=== PATIENT | female | born 1970 | race Caucasian/White ===

== ENCOUNTER → 2016-11-20 | Outpatient (CLI) | payer OTHER ==
[2016-11-20 10:53] LABS: Appearance,Urine Clear (Clear); Bilirubin,Urine Negative (Negative); Glucose,Urine (UA) Negative (Negative); Ketones,Urine Negative (Negative); Leukocyte Esterase,Urine Negative (Negative); Nitrite,Urine Negative (Negative); PH, Urine 5.5 (5.0-8.0); Protein,Urine Negative (Negative); UA Billing (MACRO vs. MICRO) CHEM; Urobilinogen,Urine <2.0 mg/dL (<2.0)
== END | disposition home or self-care (01) ==
LOC: LABWHC1 10:03
PROVIDERS: ATTEND Obstetrics & Gynecology
DX: R30.9 Painful micturition, unspecified (principal)
CPT/HCPCS: 81003; 87086

== ENCOUNTER → 2017-04-24 | Outpatient (CLI) | payer OTHER ==
[2017-04-24 07:10] LABS: Anisocytosis Slight; Basophils % (A) 1 %; CH 31.4; CHCM 32.3; Eosinophils % (A) 1 %; HCT 33.3 % (34.0-46.0); HDW 2.54; HGB 10.6 gm/dL (11.4-16.0); Luc # (Auto) 0.06; Luc % (Auto) 2; Lymphocytes # (A) 1.1 k/uL (1.0-4.8); Lymphocytes % (A) 33 %; MCH 31.2 pg (25.0-35.0); MCHC 31.9 g/dL (31.0-37.0); MCV 97.9 fL (80.0-100.0); Macrocytosis Slight; Monocytes # (A) 0.2 k/uL (0-1.0); Monocytes % (A) 7 %; Neutrophils # (A) 1.8 k/uL (1.3-7.7); Neutrophils % (A) 57 %; RBC 3.41 m/uL (3.80-5.40); RDW 17.6 % (11.5-15.5); WBC 3.2 k/uL (3.8-10.6); WBC (Perox) 3.33
[2017-04-24 07:21] LABS: ALT 31 U/L (9-52); AST 33 U/L (14-36); Alkaline Phosphatase 56 U/L (38-126); Anion Gap 10 mmol/L; Blood Urea Nitrogen 15 mg/dL (7-17); Calcium 9.7 mg/dL (8.4-10.2); Carbon Dioxide 28 mmol/L (22-30); Chloride 103 mmol/L (98-107); Glucose 94 mg/dL (74-99); Non-African American GFR(MDRD) >60 (>60 ml/min/1.73 sqM); Potassium 4.5 mmol/L (3.5-5.1); Sodium 141 mmol/L (137-145); Total Bilirubin 0.5 mg/dL (0.2-1.3); Total Protein 7.2 g/dL (6.3-8.2)
[2017-04-24 08:00] LABS: Magnesium 1.6 mg/dL (1.6-2.3)
== END | disposition home or self-care (01) ==
LOC: LABWHC1 06:42
PROVIDERS: ATTEND Obstetrics & Gynecology
DX: C56.9 Malignant neoplasm of unspecified ovary (principal)
CPT/HCPCS: 36415; 80053; 83735; 85025; 86304

== ENCOUNTER → 2017-12-26 | Outpatient (CLI) | payer BC | END | disposition home or self-care (01) | LOC: LABWHC1 09:11 | PROVIDERS: ATTEND Obstetrics & Gynecology | DX: C56.9 Malignant neoplasm of unspecified ovary (principal) | CPT/HCPCS: 36415; 86304 ==

== ENCOUNTER → 2018-01-21 | Outpatient (CLI) | payer BC | END | disposition home or self-care (01) | LOC: LABWHC1 07:29 | PROVIDERS: ATTEND Obstetrics & Gynecology | DX: C56.9 Malignant neoplasm of unspecified ovary (principal) | CPT/HCPCS: 36415; 86304 ==

== ENCOUNTER → 2018-04-30 | Outpatient (CLI) | payer BC ==
--- NOTE | 2018-04-30 10:31 | MM ---
Reason for exam: clinical finding. Last mammogram was performed 8 years and 2 months ago. History: Patient is postmenopausal and has history of ovarian cancer at age 45. Took hormonal contraceptives for 1 year. Physical Findings: Nurse did not find any significant physical abnormalities on exam. MG 3D Diag Mammo W/Cad SAMMY Bilateral CC, MLO, and XCCL view(s) were taken. Prior study comparison: February 21, 2010, right breast mammogram dig work up. February 12, 2010, bilateral digital screening mammogram. There are scattered fibroglandular densities. No significant new findings when compared with previous films. These results were verbally communicated with the patient and result sheet given to the patient on 04/30/18. ASSESSMENT: Negative, BI-RAD 1 RECOMMENDATION: Routine screening mammogram of both breasts in 1 year.
== END | disposition home or self-care (01) ==
LOC: RADMAMWWP 06:47
PROVIDERS: ATTEND Obstetrics & Gynecology
DX: N64.4 Mastodynia (principal)
CPT/HCPCS: 77062; 77066

== ENCOUNTER 2018-08-20 22:24 | Emergency (ER) | payer BC ==
[2018-08-20] MEDS ORDERED: ONDANSETRON 4 MG/2 ML VIAL IVP STA (22:57)
[2018-08-20] MEDS ORDERED: HYDROmorphone 0.5 MG/0.5 ML SYRINGE IVP STA (22:57)
[2018-08-20] MEDS ORDERED: SODIUM CHLORIDE 0.9% 1,000 ML IV ONE (22:57)
--- NOTE | 2018-08-20 22:58 | ED ---
Allergic Reaction HPI - General Source: patient, family Mode of arrival: ambulatory Limitations: no limitations <Michaela Daniels - Last Filed: 08/21/18 00:38> <Audrey Love - Last Filed: 08/21/18 01:54> - General Chief complaint: Allergic Reaction Stated complaint: Allergic reaction to cbd oil Time Seen by Provider: 08/20/18 22:35 - History of Present Illness Initial Comments: 48-year-old female with past medical history history of ovarian cancer with metastasis currently in mist of chemotherapy with last treatemnt of carboplatin and taxil Friday with oncologist in [place] presenting today for cc of "allergic reaction to THC/CBD oil", pt states that she had CBD/THC for the first time today, she states she had it around 5:30 fell asleep and then woke up at 7:30 PM feeling anxious, chest pressure, short of breath and has a very dry mouth, she states she had similar symptoms a few weeks ago when she had edible THC in a chocolate form , but this feels intensified. She denies experiencing these symptoms prior to taking these medications. Pt states has chronic pain that has no been controlled, and often occurs in her legs. Denies any changes, LE swelling or calf pain. Shes states it is more nerve pain of the legs b/l. Pt denies histor of blood clot. Pt denies CAD. 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 Pt states she has chronic nausea from her chemotherapy and occasional diarrhea. Denies any changes. Remaining ROS (-), pt denies any recent hemoptysis, fever, chills, back pain, numbness or tingling, dysuria or hematuria, constipation, headaches or visual changes, or any other complaints. Upon arrival pt VS WNL. (Michaela Daniels) - Related Data Home Medications Medication Instructions Recorded Confirmed Nystatin 500,000 units PO QID PRN 08/20/18 08/20/18 Ondansetron HCl [Zofran] 8 mg PO Q8H PRN 08/20/18 08/20/18 Allergies Allergy/AdvReac Type Severity Reaction Status Date / Time metronidazole [From Flagyl] Allergy Rash/Hives Verified 08/20/18 23:12 gluten AdvReac Nausea & Verified 08/20/18 23:12 Vomiting Milk Containing Products AdvReac Nausea & Verified 08/20/18 23:12 [Dairy] Vomiting Review of Systems ROS Other: All systems not noted in ROS Statement are negative. <Michaela Daniels - Last Filed: 08/21/18 00:38> ROS Other: All systems not noted in ROS Statement are negative. <Audrey Love P - Last Filed: 08/21/18 01:54> ROS Statement: Those systems with pertinent positive or pertinent negative responses have been documented in the HPI. 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 lymes disease History of Any Multi-Drug Resistant Organisms: None Reported Past Surgical History: Cholecystectomy, Hysterectomy Additional Past Surgical History / Comment(s): abd Past Psychological History: No Psychological Hx Reported Smoking Status: Never smoker Past Alcohol Use History: None Reported Past Drug Use History: None Reported <Michaela Daniels - Last Filed: 08/21/18 00:38> General Exam Limitations: no limitations <Michaela Daniels - Last Filed: 08/21/18 00:38> <Audrey Love P - Last Filed: 08/21/18 01:54> - General Exam Comments Initial Comments: General: The patient is awake and alert, in no distress, and does not appear acutely ill. Eye: Pupils are equal, round and reactive to light, extra-ocular movements are intact. No nystagmus. There is normal conjunctiva bilaterally. No signs of icterus. Ears, nose, mouth and throat: There are moist mucous membranes and no oral lesions. Neck: The neck is supple, there is no tenderness or JVD. Cardiovascular: There is a regular rate and rhythm. No murmur, rub or gallop is appreciated. Respiratory: Lungs are clear to auscultation, respirations are non-labored, breath sounds are equal. No wheezes, stridor, rales, or rhonchi. Gastrointestinal: Soft, non-distended, non-tender abdomen without masses or organomegaly noted. There is no rebound or guarding present. No CVA tenderness. Bowel sounds are unremarkable. Musculoskeletal: Normal ROM, no tenderness. Strength 5/5. Sensation intact. Radial pulses equal bilaterally 2+. Neurological: A&O x 3. CN II-XII intact, There are no obvious motor or sensory deficits. Coordination appears grossly intact. Speech is normal. Skin: Skin is warm and dry and no rashes or lesions are noted. (-) Homans, no lower extremity edema. Psychiatric: Cooperative, appropriate mood & affect, normal judgment. (Michaela Daniels) Vital Signs 08/20/18 02 22:28 01:27 Temperature 97.5 F L 97.4 F L Pulse Rate 99 76 Respiratory 15 18 Rate Blood Pressure 121/80 115/73 O2 Sat by Pulse 100 98 Oximetry Medical Decision Making - Lab Data Result diagrams: 08/20/18 22:57 08/20/18 22:57 <Michaela Daniels - Last Filed: 08/21/18 00:38> - Lab Data Result diagrams: 08/20/18 22:57 08/20/18 22:57 <Audrey Love - Last Filed: 08/21/18 01:54> - Medical Decision Making 48yo female presenting today for cc of "reaction to CBD/THC oil". I discussed the workup that I would like to perform today including CTA to r/o pulmonary embolism and ACS w/u. Pt began to cry in the room stating she does not want anymore imaging studies, stating she has had contrast with chest/abdomen/pelvic CT earlier this week. She states she is sure it is a reaction to the medication as she has had similar symptoms in the past when ingesting THC productions, this just feels intensified. I urged and expressed importance of the test to rule out a blood clot of the heart. Pt refused stating she does not want the a large work up she would like symptomatic treatment. I will readdress further testing with patient again. I discussed again risks without CTA and evaluation for PE. Pt again refused. Stating she would not like further testing. Patient is of sound mind at this time pt is requesting discharge, improvement of symptoms. Pt advised to not use oils if cause this reaction. Pt is to f/u with oncologist/ primary care provider in 1-2 days and return for persistent or worsening symptoms. Pt is agreeable with plan, denied questions at this time. Pt VS WNL. I did discuss the case with attending provider Dr. Peña who agreed with impression and plan. (Michaela Daniels) I was available for consultation in the emergency department. The history and physical exam were done by the midlevel provider. I was consulted for this patient's care. I reviewed the case with the midlevel provider and based on their presentation of the patient, I agree with the assessment, medical decision making and plan of care as documented. (Audrey Love) - Lab Data Lab Results 08/20/18 08/20/18 08/20/18 Range/Units 22:57 22:57 22:57 WBC 3.2 L (3.8-10.6) k/uL RBC 4.57 (3.80-5.40) m/uL Hgb 13.7 (11.4-16.0) gm/dL Hct 41.2 (34.0-46.0) % MCV 90.2 (80.0-100.0) fL MCH 30.0 (25.0-35.0) pg MCHC 33.3 (31.0-37.0) g/dL RDW 12.9 (11.5-15.5) % Plt Count 168 (150-450) k/uL Neutrophils % 55 % Lymphocytes % 39 % Monocytes % 3 % Eosinophils % 3 % Basophils % 0 % Neutrophils # 1.8 (1.3-7.7) k/uL Lymphocytes # 1.3 (1.0-4.8) k/uL Monocytes # 0.1 (0-1.0) k/uL Eosinophils # 0.1 (0-0.7) k/uL Basophils # 0.0 (0-0.2) k/uL Sodium 134 L (137-145) mmol/L Potassium 4.3 (3.5-5.1) mmol/L Chloride 98 (98-107) mmol/L Carbon Dioxide 27 (22-30) mmol/L Anion Gap 9 mmol/L BUN 19 H (7-17) mg/dL Creatinine 0.71 (0.52-1.04) mg/dL Est GFR (CKD-EPI)AfAm >90 (>60 ml/min/1.73 sqM) Est GFR (CKD-EPI)NonAf >90 (>60 ml/min/1.73 sqM) Glucose 100 H (74-99) mg/dL Calcium 9.4 (8.4-10.2) mg/dL Total Bilirubin 1.7 H (0.2-1.3) mg/dL AST 33 (14-36) U/L ALT 24 (9-52) U/L Alkaline Phosphatase 55 (38-126) U/L Troponin I <0.012 (0.000-0.034) ng/mL Total Protein 7.2 (6.3-8.2) g/dL Albumin 4.4 (3.5-5.0) g/dL - EKG Data EKG Comments: A 12-lead EKG was performed and shows the following: Rate is 86bpm, and rhythm is normal sinus. There are normal QRS complexes. ST segments have no elevation or depression, and DE segments appear normal. NonsppT wave abnormalities. EKG was reviewed by attending provider Dr. Love. (Michaela Daniels) Disposition Is patient prescribed a controlled substance at d/c from ED?: No Time of Disposition: 00:37 <Michaela Daniles - Last Filed: 08/21/18 00:38> <Audrey Love - Last Filed: 08/21/18 01:54> Clinical Impression: Anxiety, Shortness of breath, Allergic reaction Disposition: HOME SELF-CARE Condition: Good Instructions (If sedation given, give patient instructions): Dyspnea (ED) Additional Instructions: Please use medication as discussed. Please follow-up with family doctor in the next 2 days.. Please return to emergency room if the symptoms increase or worsen or for any other concerns. Referrals: Delmer Zarate MD [Primary Care Provider] - 1-2 days
[2018-08-20 23:46] LABS: ALT 24 U/L (9-52); AST 33 U/L (14-36); Albumin 4.4 g/dL (3.5-5.0); Alkaline Phosphatase 55 U/L (38-126); Anion Gap 9 mmol/L; Basophils % (A) 0 %; Blood Urea Nitrogen 19 mg/dL (7-17); Calcium 9.4 mg/dL (8.4-10.2); Carbon Dioxide 27 mmol/L (22-30); Chloride 98 mmol/L (98-107); Eosinophils # (A) 0.1 k/uL (0-0.7); Eosinophils % (A) 3 %; Glucose 100 mg/dL (74-99); HCT 41.2 % (34.0-46.0); HGB 13.7 gm/dL (11.4-16.0); Lymphocytes # (A) 1.3 k/uL (1.0-4.8); Lymphocytes % (A) 39 %; MCHC 33.3 g/dL (31.0-37.0); MCV 90.2 fL (80.0-100.0); Mean Platelet Volume 6.9; Monocytes # (A) 0.1 k/uL (0-1.0); Monocytes % (A) 3 %; Neutrophils # (A) 1.8 k/uL (1.3-7.7); Neutrophils % (A) 55 %; Platelet Count 168 k/uL (150-450); Potassium 4.3 mmol/L (3.5-5.1); RBC 4.57 m/uL (3.80-5.40); RDW 12.9 % (11.5-15.5); Sodium 134 mmol/L (137-145); Total Bilirubin 1.7 mg/dL (0.2-1.3); Total Protein 7.2 g/dL (6.3-8.2); WBC 3.2 k/uL (3.8-10.6)
[2018-08-21 01:28] VITALS: BP 115/73; PULSE 76; RESP 18; TEMP 97.4
== END 2018-08-21 01:27 | disposition home or self-care (01) ==
LOC: EC 22:24
DX: T40.7X5A Adverse effect of cannabis (derivatives), initial encounter (principal); R94.31 Abnormal electrocardiogram [ECG] [EKG]; K52.1 Toxic gastroenteritis and colitis; T45.1X5A Adverse effect of antineoplastic and immunosuppressive drugs, initial encounter; G89.29 Other chronic pain; M79.604 Pain in right leg; M79.605 Pain in left leg; Z88.1 Allergy status to other antibiotic agents; Z91.011 Allergy to milk products; Z92.21 Personal history of antineoplastic chemotherapy; Z85.43 Personal history of malignant neoplasm of ovary; Z85.028 Personal history of other malignant neoplasm of stomach; Z85.89 Personal history of malignant neoplasm of other organs and systems; Z90.710 Acquired absence of both cervix and uterus; Z90.49 Acquired absence of other specified parts of digestive tract; Z53.20 Procedure and treatment not carried out because of patient's decision for unspecified reasons
CPT/HCPCS: 36415; 93005; 80053; 84484; 85025; 99285; 96374; 96375; 96361; J2405; J1170

== ENCOUNTER → 2018-09-29 | Outpatient (CLI) | payer BC ==
[2018-09-29 08:39] LABS: Basophils % (A) 1 %; Eosinophils # (A) 0.1 k/uL (0-0.7); Eosinophils % (A) 3 %; HCT 35.1 % (34.0-46.0); HGB 11.6 gm/dL (11.4-16.0); Lymphocytes # (A) 1.3 k/uL (1.0-4.8); Lymphocytes % (A) 42 %; MCH 30.4 pg (25.0-35.0); MCHC 33.1 g/dL (31.0-37.0); MCV 91.8 fL (80.0-100.0); Mean Platelet Volume 8.1; Monocytes # (A) 0.2 k/uL (0-1.0); Monocytes % (A) 8 %; Neutrophils # (A) 1.4 k/uL (1.3-7.7); Neutrophils % (A) 44 %; Platelet Count 177 k/uL (150-450); RBC 3.83 m/uL (3.80-5.40); WBC 3.1 k/uL (3.8-10.6)
[2018-09-29 17:26] LABS: Albumin 4.6 g/dL (3.80-4.90); Albumin/Globulin Ratio 2.3 (1.60-3.17); Anion Gap 7.3 mmol/L (4.00-12.00); Calcium 9.5 mg/dL (8.7-10.3); Carbon Dioxide 27.7 mmol/L (21.6-31.8); Potassium 4.1 mmol/L (3.5-5.5); Total Bilirubin 0.5 mg/dL (0.3-1.2); Total Protein 6.6 g/dL (6.2-8.2)
== END | disposition home or self-care (01) ==
LOC: LABWHC1 08:14
PROVIDERS: ATTEND Nurse Practitioner Family
DX: C56.9 Malignant neoplasm of unspecified ovary (principal)
CPT/HCPCS: 36415; 80053; 85025; 86304

== ENCOUNTER → 2018-10-07 | Outpatient (CLI) | payer BC ==
[2018-10-07 07:38] LABS: Basophils % (A) 1 %; Eosinophils # (A) 0.1 k/uL (0-0.7); Eosinophils % (A) 3 %; HCT 38.2 % (34.0-46.0); HGB 12.5 gm/dL (11.4-16.0); Lymphocytes # (A) 1.4 k/uL (1.0-4.8); Lymphocytes % (A) 54 %; MCHC 32.7 g/dL (31.0-37.0); MCV 91.8 fL (80.0-100.0); Mean Platelet Volume 8.2; Monocytes % (A) 1 %; Neutrophils # (A) 1.1 k/uL (1.3-7.7); Neutrophils % (A) 40 %; Platelet Count 154 k/uL (150-450); RBC 4.16 m/uL (3.80-5.40); RDW 14.9 % (11.5-15.5); WBC 2.7 k/uL (3.8-10.6)
== END | disposition home or self-care (01) ==
LOC: LABWHC1 06:59
PROVIDERS: ATTEND Nurse Practitioner Family
DX: C56.9 Malignant neoplasm of unspecified ovary (principal)
CPT/HCPCS: 36415; 85025

== ENCOUNTER 2018-11-13 01:56 | Emergency (ER) | payer BC ==
--- NOTE | 2018-11-13 02:13 | ED ---
Chest Pain HPI - General Chief Complaint: Chest Pain Stated Complaint: chest pain Time Seen by Provider: 11/13/18 02:10 Source: patient Mode of arrival: ambulatory Limitations: no limitations - History of Present Illness Initial Comments: Patient's 48-year-old woman with history of cancer, being treated currently who had the onset of sternal chest pain and approximate 9 PM while she was trying to rest. Patient states she was warned she may have bony pains while on this chemotherapeutic. She states that she is subsequently has been having pain to t he tailbone area. She describes pain as aching, severe, without worsening or relieving factors. She denies any anginal type symptoms. MD Complaint: chest pain Onset/Timin -: hour(s) Onset: during rest Pain Location: substernal Severity: severe Quality: sharp Consistency: constant Improves With: nothing Worsens With: nothing Treatments Prior to Arrival: none - Related Data Home Medications Medication Instructions Recorded Confirmed Nystatin 500,000 units PO QID PRN 08/20/18 08/20/18 Ondansetron HCl [Zofran] 8 mg PO Q8H PRN 08/20/18 08/20/18 Allergies Allergy/AdvReac Type Severity Reaction Status Date / Time metronidazole [From Flagyl] Allergy Rash/Hives Verified 11/13/18 02:07 gluten AdvReac Nausea & Verified 11/13/18 02:07 Vomiting Milk Containing Products AdvReac Nausea & Verified 11/13/18 02:07 [Dairy] Vomiting Review of Systems ROS Statement: Those systems with pertinent positive or pertinent negative responses have been documented in the HPI. ROS Other: All systems not noted in ROS Statement are negative. Constitutional: Denies: fever, chills Respiratory: Denies: cough, dyspnea Cardiovascular: Reports: as per HPI, chest pain. 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 lymes disease History of Any Multi-Drug Resistant Organisms: None Reported Past Surgical History: Cholecystectomy, Hysterectomy Additional Past Surgical History / Comment(s): abd Past Psychological History: No Psychological Hx Reported Smoking Status: Never smoker Past Alcohol Use History: None Reported Past Drug Use History: None Reported General Exam Limitations: no limitations General appearance: alert, in no apparent distress Head exam: Present: atraumatic, normocephalic Eye exam: Present: normal appearance. Absent: scleral icterus, conjunctival injection ENT exam: Present: normal oropharynx Neck exam: Present: normal inspection, full ROM. Absent: tenderness Respiratory exam: Present: normal lung sounds bilaterally. Absent: respiratory distress, wheezes, rales, rhonchi, stridor Cardiovascular Exam: Present: regular rate, normal rhythm, normal heart sounds. Absent: systolic murmur, diastolic murmur, rubs, gallop GI/Abdominal exam: Present: soft. Absent: distended, tenderness, guarding, rebound, rigid, mass Extremities exam: Present: normal inspection, normal capillary refill. Absent: pedal edema, calf tenderness Back exam: Present: normal inspection. Absent: vertebral tenderness Skin exam: Present: warm, dry, intact, normal color. Absent: rash Course Vital Signs 11/13/18 11/13/18 11/13/18 02:05 02:52 03:14 Temperature 97.6 F 99.1 F Pulse Rate 106 H 98 80 Respiratory 20 18 18 Rate Blood Pressure 186/114 146/126 123/69 O2 Sat by Pulse 99 99 95 Oximetry 11/13/18 04:22 Temperature Pulse Rate 86 Respiratory 18 Rate Blood Pressure 119/73 O2 Sat by Pulse 96 Oximetry Disposition Clinical Impression: Chest pain Disposition: HOME SELF-CARE Condition: Good Instructions (If sedation given, give patient instructions): Chest Pain (ED) Is patient prescribed a controlled substance at d/c from ED?: No Referrals: Nonstaff,Physician [Primary Care Provider] - 1-2 days
[2018-11-13] MEDS ORDERED: SODIUM CHLORIDE 0.9% 500 ML 500 ML IV STA (02:27)
[2018-11-13] MEDS ORDERED: HYDROmorphone 0.5 MG/0.5 ML SYRINGE IVP STA (02:27)
--- NOTE | 2018-11-13 02:27 | XR ---
EXAM: XR Chest, 2 Views CLINICAL HISTORY: Chest pain TECHNIQUE: Frontal and lateral views of the chest. COMPARISON: Chest x-ray dated 06/08/2016 FINDINGS: Lungs: Unremarkable. No consolidation. Pleural space: Unremarkable. No pneumothorax. Heart: Unremarkable. No cardiomegaly. Mediastinum: Unremarkable. Bones/joints: Unremarkable. Tubes, lines and devices: Left subclavian Port-A-Cath with tip in the cavoatrial junction. IMPRESSION: No acute findings.
[2018-11-13 02:36] LABS: Anisocytosis Slight; Basophils % (A) 1 %; Eosinophils # (A) 0.1 k/uL (0-0.7); Eosinophils % (A) 1 %; HCT 38.1 % (34.0-46.0); HGB 12.1 gm/dL (11.4-16.0); Lymphocytes # (A) 2.1 k/uL (1.0-4.8); Lymphocytes % (A) 50 %; MCH 30.6 pg (25.0-35.0); MCHC 31.9 g/dL (31.0-37.0); MCV 96.1 fL (80.0-100.0); Mean Platelet Volume 7.4; Monocytes # (A) 0.5 k/uL (0-1.0); Monocytes % (A) 12 %; Neutrophils # (A) 1.4 k/uL (1.3-7.7); Neutrophils % (A) 33 %; Platelet Count 167 k/uL (150-450); RBC 3.97 m/uL (3.80-5.40); RDW 16.6 % (11.5-15.5); WBC 4.2 k/uL (3.8-10.6)
[2018-11-13 02:37] LABS: INR 0.9 (<1.2); Partial Thromboplastin Time 23.5 sec (22.0-30.0); Prothrombin Time 9.5 sec (9.0-12.0)
[2018-11-13 02:45] LABS: ALT 31 U/L (9-52); AST 66 U/L (14-36); Albumin 4.9 g/dL (3.5-5.0); Alkaline Phosphatase 60 U/L (38-126); Anion Gap 10 mmol/L; Blood Urea Nitrogen 23 mg/dL (7-17); Carbon Dioxide 27 mmol/L (22-30); Chloride 103 mmol/L (98-107); Glucose 96 mg/dL (74-99); Magnesium 1.7 mg/dL (1.6-2.3); Potassium 4.1 mmol/L (3.5-5.1); Sodium 140 mmol/L (137-145); Total Bilirubin 0.6 mg/dL (0.2-1.3); Total Protein 7.8 g/dL (6.3-8.2)
[2018-11-13 02:53] VITALS: RESP 18
[2018-11-13 04:23] VITALS: BP 119/73; PULSE 86
[2018-11-13 04:53] VITALS: TEMP 97.6
== END 2018-11-13 04:55 | disposition home or self-care (01) ==
LOC: EC 01:56
DX: R07.89 Other chest pain (principal); M53.3 Sacrococcygeal disorders, not elsewhere classified; Z88.1 Allergy status to other antibiotic agents; Z91.011 Allergy to milk products; Z91.018 Allergy to other foods; Z85.43 Personal history of malignant neoplasm of ovary; Z85.028 Personal history of other malignant neoplasm of stomach; Z85.528 Personal history of other malignant neoplasm of kidney; Z92.21 Personal history of antineoplastic chemotherapy; Z90.49 Acquired absence of other specified parts of digestive tract
CPT/HCPCS: 36415; 71046; 80053; 83735; 84484; 85025; 85379; 85610; 85730; 93005; 96361; 96374; 99285

== ENCOUNTER → 2019-01-07 | Outpatient (CLI) | payer BC ==
[2019-01-07 07:30] LABS: HCT 33.4 % (34.0-46.0); HGB 11.3 gm/dL (11.4-16.0); MCH 32.9 pg (25.0-35.0); MCHC 33.8 g/dL (31.0-37.0); MCV 97.5 fL (80.0-100.0); Mean Platelet Volume 7.9; Platelet Count 145 k/uL (150-450); RBC 3.42 m/uL (3.80-5.40); RDW 15.5 % (11.5-15.5)
[2019-01-07 08:39] LABS: Neutrophils % (M) 19 %
[2019-01-07 08:40] LABS: Eosinophils # (M) 0.06 k/uL (0-0.7); Lymphocytes # (M) 1.26 k/uL (1.0-4.8); Nucleated Red Blood Cells 0 /100 WBC (0-0); Total Cells Counted 100
[2019-01-07 09:30] LABS: Neutrophils # (M) 0.38 k/uL (1.3-7.7)
== END | disposition home or self-care (01) ==
LOC: LABWHC1 06:38
PROVIDERS: ATTEND Nurse Practitioner Family
DX: C56.9 Malignant neoplasm of unspecified ovary (principal)
CPT/HCPCS: 36415; 85025

== ENCOUNTER → 2019-01-19 | Outpatient (CLI) | payer BC ==
[2019-01-19 07:39] LABS: Basophils % (A) 1 %; Eosinophils # (A) 0.1 k/uL (0-0.7); Eosinophils % (A) 2 %; HCT 36.7 % (34.0-46.0); Lymphocytes # (A) 1.5 k/uL (1.0-4.8); Lymphocytes % (A) 44 %; MCH 32.9 pg (25.0-35.0); MCHC 32.8 g/dL (31.0-37.0); MCV 100.4 fL (80.0-100.0); Macrocytosis Slight; Mean Platelet Volume 7.2; Monocytes # (A) 0.2 k/uL (0-1.0); Monocytes % (A) 7 %; Neutrophils # (A) 1.5 k/uL (1.3-7.7); Neutrophils % (A) 44 %; Platelet Count 137 k/uL (150-450); RBC 3.66 m/uL (3.80-5.40); WBC 3.5 k/uL (3.8-10.6)
== END | disposition home or self-care (01) ==
LOC: LABWHC1 06:29
PROVIDERS: ATTEND Nurse Practitioner Family
DX: C56.9 Malignant neoplasm of unspecified ovary (principal)
CPT/HCPCS: 36415; 85025

== ENCOUNTER → 2019-03-19 | Outpatient (CLI) | payer BC ==
[2019-03-19 11:21] LABS: Vitamin D 25 Hydroxy 23.2 ng/mL (30.0-100.0)
== END | disposition home or self-care (01) ==
LOC: LABWHC1 06:42
PROVIDERS: ATTEND Family Medicine
DX: E55.9 Vitamin D deficiency, unspecified (principal); C56.9 Malignant neoplasm of unspecified ovary; E56.9 Vitamin deficiency, unspecified; E72.11 Homocystinuria
CPT/HCPCS: 36415; 82306; 82607; 83090; 83735; 84207; 84630; 85652

== ENCOUNTER → 2020-06-26 | Outpatient (CLI) | payer BC ==
--- NOTE | 2020-06-26 13:02 | ECHOF ---
Referral Reason:Pre Chemo Z01.818 MEASUREMENTS -------- HEIGHT: 180.3 cm WEIGHT: 73.9 kg BP: IVSd: 0.9 cm (0.6 - 1.1) LVIDd: 3.7 cm (3.9 - 5.3) LVPWd: 0.9 cm (0.6 - 1.1) IVSs: 1.1 cm LVIDs: 2.5 cm LVPWs: 1.3 cm LA Diam: 2.9 cm (2.7 - 3.8) RVIDd: 2.7 cm (< 3.3) EPSS: 0.1 cm MV E Joe: 0.32 m/s MV DecT: 182 ms MV A Joe: 0.77 m/s MV E/A Ratio: 0.42 RAP: 5.00 mmHg RVSP: 27.32 mmHg MV EF SLOPE: 59.59 mm/s (70 - 150) MV EXCURSION: 24.53 mm (> 18.000) FINDINGS -------- Sinus rhythm. This was a technically good study. LV size, wall thickness and systolic function are normal, with an EF greater than 55%. The left julia tricular size is normal. The right ventricle is normal in size. The left atrial size is normal. The right atrial size is normal. There is mild aortic valve sclerosis. Mild mitral regurgitation is present. Mild tricuspid regurgitation present. Right ventricular systolic pressure is normal at < 35 mmHg. There is no pulmonic regurgitation present. The aortic root size is normal. There is no pericardial effusion. CONCLUSIONS -------- 1. LV size, wall thickness and systolic function are normal, with an EF greater than 55%. 2. The left ventricular size is normal. 3. The right ventricle is normal in size. 4. The left atrial size is normal. 5. The right atrial size is normal. 6. There is mild aortic valve sclerosis. 7. Mild mitral regurgitation is present. 8. Mild tricuspid regurgitation present. 9. The aortic root size is normal. 10. There is no pericardial effusion. HEAD OF QUALITY: Hoa Corona RDCS
== END | disposition home or self-care (01) ==
LOC: RADECHMAIN 10:01
PROVIDERS: ATTEND Internal Medicine Hematology & Oncology
DX: I08.3 Combined rheumatic disorders of mitral, aortic and tricuspid valves (principal); Z91.011 Allergy to milk products; Z88.1 Allergy status to other antibiotic agents; Z91.09 Other allergy status, other than to drugs and biological substances
CPT/HCPCS: 93306

== ENCOUNTER 2020-09-12 10:15 | Day surgery (SDC) | payer BC ==
[2020-09-11 08:48] VITALS: BMI 23.3
[~2020-09-12 10:15] MED LIST: LACTATED RINGERS 1,000 ML IV SCH; LIDOCAINE 1% (10MG/ML) FOR IV START INTRADERMA PRN
[2020-09-12] MEDS ORDERED: hydrALAZINE HCL 20 MG/ML 1 ML VIAL IV ONE (11:13)
[2020-09-12 11:18] VITALS: TEMP 98.1
[2020-09-12 11:23] LABS: Basophils % (A) 1 %; Eosinophils # (A) 0.1 k/uL (0-0.7); Eosinophils % (A) 3 %; HCT 39.3 % (34.0-46.0); HGB 13.3 gm/dL (11.4-16.0); Lymphocytes # (A) 0.8 k/uL (1.0-4.8); Lymphocytes % (A) 20 %; MCH 30.7 pg (25.0-35.0); MCHC 33.9 g/dL (31.0-37.0); MCV 90.6 fL (80.0-100.0); Mean Platelet Volume 7.9; Monocytes # (A) 0.2 k/uL (0-1.0); Monocytes % (A) 6 %; Neutrophils # (A) 2.8 k/uL (1.3-7.7); Neutrophils % (A) 69 %; Platelet Count 158 k/uL (150-450); RBC 4.33 m/uL (3.80-5.40); RDW 14.9 % (11.5-15.5)
[2020-09-12] MEDS ORDERED: PROPOFOL 10 MG/ML 20 ML VIAL IV ONE (11:31)
[2020-09-12] MEDS ORDERED: LIDOCAINE 1% INJ 10MG/ML (20 ML MDV) ONE (11:31)
--- NOTE | 2020-09-12 11:35 | P.GSHP ---
History of Present Illness H&P Date: 09/12/20 Chief Complaint: GERD, dysphagia 50-year-old female with a complex medical history including ovarian cancer, Lyme disease here today for upper endoscopy. Patient has had complaints of dysphagia and odynophagia. Some reflux as well. Some chronic abdominal discomfort Past Medical History Past Medical History: Cancer, GERD/Reflux Additional Past Medical History / Comment(s): ovarian ca mets to stomach and r enal artery 2016-chemo & surgery, lymes disease, left kidney infarction, current chemo, recent hoarseness & dysphagia History of Any Multi-Drug Resistant Organisms: None Reported Past Surgical History: Cholecystectomy, Hysterectomy, Orthopedic Surgery Additional Past Surgical History / Comment(s): oophrectomy & salpingectomy & debulking, right knee arthroscopy, mediport insertion Past Anesthesia/Blood Transfusion Reactions: No Reported Reaction Smoking Status: Never smoker Medications and Allergies Home Medications Medication Instructions Recorded Confirmed Type ondansetron HCL [Zofran] 8 mg PO Q8H PRN 08/20/18 09/12/20 History Acetaminophen [Tylenol] 325 mg PO Q4-6H PRN 09/11/20 09/12/20 History diphenhydrAMINE [Benadryl] 25 mg PO HS PRN 09/11/20 09/12/20 History Allergies Allergy/AdvReac Type Severity Reaction Status Date / Time metronidazole [From Flagyl] Allergy Rash/Hives Verified 09/12/20 10:44 gluten AdvReac Nausea & Verified 09/12/20 10:44 Vomiting Milk Containing Products AdvReac Nausea & Verified 09/12/20 10:44 [Dairy] Vomiting Surgical - Exam Vital Signs Temp Pulse Resp BP Pulse Ox 98.1 F 95 16 212/104 98 09/12/20 11:00 09/12/20 11:00 09/12/20 11:00 09/12/20 11:00 09/12/20 11:00 Physical exam: General: Well-developed, well-nourished HEENT: Normocephalic, sclerae nonicteric Abdomen: Nontender, nondistended Extremities: No edema Neuro: Alert and oriented Results - Labs 09/12/20 11:03 Abnormal Lab Results - Last 24 Hours (Table) 09/12/20 Range/Units 11:03 Lymphocytes # 0.8 L (1.0-4.8) k/uL Assessment and Plan (1) Dysphagia Narrative/Plan: Will proceed with upper endoscopy Current Visit: Yes Status: Acute Code(s): R13.10 - DYSPHAGIA, UNSPECIFIED SNOMED Code(s): 57888835
--- NOTE | 2020-09-12 11:42 | P.PCN ---
Date of Procedure: 09/12/20 Procedure(s) Performed: Preoperative Dx: Dysphagia Postoperative Dx: Gastritis Procedure: EGD with Bx Anesthesia: Sedation Endoscopist: Dr. Kowalski Specimens: Antrum Endoscopic Procedure: The patient was on the endoscopy table in the left decubitus position. The Olympus gastroscope was inserted into the oropharynx and passed under direct visualization to the region of the third portion of the duodenum. From that point the scope was slowly withdrawn inspecting all surfaces carefully. There were no neoplastic inflammatory or polypoid lesions throughout the duodenum. The pylorus was widely patent. The stomach was carefully inspected. There was mild gastritis present. A biopsy of the antrum took place to rule out H. pylori. Retroflexion revealed a normal hiatus. The esophagus was then carefully examined. There were no neoplastic inflammatory or polypoid lesions throughout the visualized esophagus. The patient was then taken to the recovery room in stable condition per anesthesia guidelines. Recommendations: Resume diet. Await biopsy results. If dysphagia persists consider esophagram. Patient also describing soreness in the back of her throat. If that persists or increases consider ENT evaluation.
[2020-09-12 12:15] VITALS: RESP 18
[2020-09-12] MEDS ORDERED: hydrALAZINE HCL 20 MG/ML 1 ML VIAL ONE (12:18)
[2020-09-12] MEDS ORDERED: hydrALAZINE HCL 20 MG/ML 1 ML VIAL IVP ONE (12:19)
[2020-09-12 12:35] VITALS: BP 162/81; PULSE 91
[2020-09-12] MEDS ORDERED: HEPARIN SODIUM,PORCINE 100 UNIT/ML 5 ML VIAL IV ONE (12:45)
== END 2020-09-12 12:55 | disposition home or self-care (01) ==
LOC: ORWHC2ENDO 10:15
PROVIDERS: ATTEND Surgery
DX: K29.50 Unspecified chronic gastritis without bleeding (principal); K31.9 Disease of stomach and duodenum, unspecified; K31.7 Polyp of stomach and duodenum; K21.9 Gastro-esophageal reflux disease without esophagitis; G89.29 Other chronic pain; C56.9 Malignant neoplasm of unspecified ovary; C78.89 Secondary malignant neoplasm of other digestive organs; C79.00 Secondary malignant neoplasm of unspecified kidney and renal pelvis; K86.81 Exocrine pancreatic insufficiency; Z86.19 Personal history of other infectious and parasitic diseases; Z92.21 Personal history of antineoplastic chemotherapy; Z98.890 Other specified postprocedural states; Z87.448 Personal history of other diseases of urinary system; Z79.899 Other long term (current) drug therapy; Z90.49 Acquired absence of other specified parts of digestive tract; Z90.710 Acquired absence of both cervix and uterus; Z90.79 Acquired absence of other genital organ(s); Z95.828 Presence of other vascular implants and grafts; Z88.1 Allergy status to other antibiotic agents; Z91.018 Allergy to other foods; Z91.011 Allergy to milk products
CPT/HCPCS: 88305; 85025; 43239; J0360; J1642; J2001; J2704

== ENCOUNTER → 2020-10-09 | Outpatient (CLI) | payer BC ==
[2020-10-09 07:39] LABS: Basophils % (A) 1 %; Eosinophils # (A) 0.1 k/uL (0-0.7); Eosinophils % (A) 3 %; HCT 42.6 % (34.0-46.0); HGB 13.7 gm/dL (11.4-16.0); Lymphocytes # (A) 0.7 k/uL (1.0-4.8); Lymphocytes % (A) 22 %; MCH 29.5 pg (25.0-35.0); MCHC 32.1 g/dL (31.0-37.0); MCV 91.8 fL (80.0-100.0); Mean Platelet Volume 8.1; Monocytes # (A) 0.2 k/uL (0-1.0); Monocytes % (A) 7 %; Neutrophils # (A) 2.1 k/uL (1.3-7.7); Neutrophils % (A) 64 %; Platelet Count 167 k/uL (150-450); RBC 4.64 m/uL (3.80-5.40); RDW 15.2 % (11.5-15.5); WBC 3.3 k/uL (3.8-10.6)
[2020-10-09 15:29] LABS: Ferritin 87.1 ng/mL (10.0-291.0)
[2020-10-09 15:46] LABS: African American GFR (CKD) 98.9 (60.0-200.0); Anion Gap 7.2 mmol/L (4.00-12.00); C Reactive Protein, High Sens 0.88 mg/L (0.000-3.000); Carbon Dioxide 29.8 mmol/L (21.6-31.8); Chol/HDL Ratio 3.08; Non-African American GFR(CKD) 85.4 (60.0-200.0); Potassium 4.7 mmol/L (3.5-5.5)
== END | disposition home or self-care (01) ==
LOC: LABWHC1 06:55
PROVIDERS: ATTEND Family Medicine
DX: Z00.00 Encounter for general adult medical examination without abnormal findings (principal); Z13.0 Encounter for screening for diseases of the blood and blood-forming organs and certain disorders involving the immune mechanism; Z13.220 Encounter for screening for lipoid disorders; Z13.1 Encounter for screening for diabetes mellitus
CPT/HCPCS: 36415; 80051; 80061; 82306; 82565; 82607; 82728; 82947; 83036; 83090; 84443; 84450; 85025; 86141

== ENCOUNTER → 2020-10-20 | Outpatient (CLI) | payer BC ==
--- NOTE | 2020-10-20 09:13 | FL ---
ESOPHOGRAM. HISTORY: Dysphagia Esophagram was performed per the air contrast technique. The patient swallowed barium and effervesce nt crystals without difficulty or delay. Esophageal peristalsis and motility appear to be within normal limits. There is no evidence for filling defect, mass or diverticulum. No hiatal hernia seen. Subsequently single contrast cervical esophagram was performed which fails demonstrate evidence for a spiration penetration or mass. IMPRESSION: Unremarkable study.
== END | disposition home or self-care (01) ==
LOC: RADFLMAIN 08:05
PROVIDERS: ATTEND Otolaryngology
DX: R13.10 Dysphagia, unspecified (principal)
CPT/HCPCS: 74220

== ENCOUNTER → 2020-11-06 | Outpatient (CLI) | payer BC ==
--- NOTE | 2020-11-06 13:18 | XR ---
EXAMINATION TYPE: XR chest 2V DATE OF EXAM: 11/06/2020 COMPARISON: 11/13/2018 TECHNIQUE: PA and lateral views submitted. HISTORY: Cough FINDINGS: The lungs are clear and there is no pneumothorax, pleural effusion, or focal pneumonia. [facility]. Biapical pleural thickening. No overt failure. Heart size normal. Mild hyperinflation c orrelate for COPD or asthma. Question of pectus deformity likely congenital. IMPRESSION: 1. No acute process.
== END | disposition home or self-care (01) ==
LOC: RADXRMAIN 12:59
PROVIDERS: ATTEND Nurse Practitioner Adult Health
DX: R05 Cough (principal)
CPT/HCPCS: 71046

== ENCOUNTER → 2020-11-10 | Outpatient (CLI) | payer BC ==
--- NOTE | 2020-11-22 10:22 | ECHOF ---
Referral Reason:Z01.818 pre chemo MEASUREMENTS -------- HEIGHT: 182.9 cm WEIGHT: 76.2 kg BP: RVIDd: 3.6 cm (< 3.3) IVSd: 1.0 cm (0.6 - 1.1) LVIDd: 3.5 cm (3.9 - 5.3) LVPWd: 1.2 cm (0.6 - 1.1) IVSs: 1.7 cm LVIDs: 1.7 cm LVPWs: 1.7 cm LAESV Index (A-L): 18.95 ml/m Ao Diam: 2.9 cm (2.0 - 3.7) AV Cusp: 2.5 cm (1.5 - 2.6) MV EXCURSION: 19.928 mm (> 18.000) MV EF SLOPE: 30 mm/s (70 - 150) EPSS: 0.2 cm MV E Joe: 0.68 m/s MV DecT: 333 ms MV A Joe: 0.77 m/s MV E/A Ratio: 0.88 RAP: 20.00 mmHg RVSP: 42.93 mmHg FINDINGS -------- Sinus rhythm. This was a technically adequate study. The left ventricular size is normal. There is mild concentric left ventricular hypertrophy. Overa ll left ventricular systolic function is normal with, an EF between 55 - 60 %. The diastolic fillin g pattern is normal for the age of the patient 12.31. The right ventricle is mildly enlarged. Normal LA size by volume 22+/-6 ml/m2. The right atrial size is normal. Interatrial and interventricular septum intact. The aortic valve is trileaflet and appears structurally normal. There is no evidence of aortic regu rgitation. There is no evidence of aortic stenosis. No mitral regurgitation. Mild tricuspid regurgitation present. There is mild pulmonary hypertension. The right ventricular systolic pressure, as measured by Doppler, is 42.93mmHg. There is no pulmonic regurgitation present. The aortic root size is normal. The inferior vena cava is dilated with poor inspiratory collapse which is consistent with estimated r ight atrial pressure of 20 mmHg. There is no pericardial effusion. CONCLUSIONS -------- 1. The left ventricular size is normal. 2. There is mild concentric left ventricular hypertrophy. 3. Overall left ventricular systolic function is normal with, an EF between 55 - 60 %. 4. The diastolic filling pattern is normal for the age of the patient 12.31 5. The right ventricle is mildly enlarged. 6. Mild tricuspid regurgitation present. 7. There is mild pulmonary hypertension. 8. The right ventricular systolic pressure, as measured by Doppler, is 42.93mmHg. 9. The inferior vena cava is dilated with poor inspiratory collapse which is consistent with estimate d right atrial pressure of 20 mmHg. ELECTRONIC TECHNOLOGIST: Jeanette Thomson RDCS
== END | disposition home or self-care (01) ==
LOC: RADECHMAIN 11:30
PROVIDERS: ATTEND Internal Medicine Hematology & Oncology
DX: I07.1 Rheumatic tricuspid insufficiency (principal); I27.20 Pulmonary hypertension, unspecified
CPT/HCPCS: 93306

== ENCOUNTER → 2020-11-15 | Outpatient (CLI) | payer BC ==
--- NOTE | 2020-11-15 10:45 | US ---
EXAMINATION TYPE: US venous doppler duplex LE LT DATE OF EXAM: 11/15/2020 10:33 AM COMPARISON: NONE CLINICAL HISTORY: R22.42 swelling in left lower leg. SIDE PERFORMED: Left TECHNIQUE: The lower extremity deep venous system is examined utilizing real time linear array sonog peter with graded compression, doppler sonography and color-flow sonography. VESSELS IMAGED: Common Femoral Vein Deep Femoral Vein Greater Saphenous Vein * Femoral Vein Popliteal Vein Small Saphenous Vein * Proximal Calf Veins (* superficial vessels) Left Leg: Negative for DVT Left groin node noted measures 2.7 x 1.2 cm IMPRESSION: 1. No evidence of deep venous thrombosis of the left lower extremity. 2. Prominent Left groin lymph node measuring 2.7 cm clinical follow-up is recommended. If clinically indicated, this would be amenable to ultrasound-guided biopsy.
== END | disposition home or self-care (01) ==
LOC: RADUSWWP 10:11
PROVIDERS: ATTEND Internal Medicine Hematology & Oncology
DX: R22.42 Localized swelling, mass and lump, left lower limb (principal)

== ENCOUNTER 2020-11-21 12:40 | Emergency (ER) | payer BC ==
[2020-11-21 12:48] VITALS: RESP 18; TEMP 97.6
[2020-11-21] MEDS ORDERED: SODIUM CHLORIDE 0.9% 500 ML 500 ML IV ONE (13:09)
[2020-11-21] MEDS ORDERED: amLODIPine 10 MG TAB PO STA (13:10)
[2020-11-21] MEDS ORDERED: LORazepam 2 MG/ML INJ IV STA (13:10)
--- NOTE | 2020-11-21 13:33 | ED ---
General Adult HPI - General Chief complaint: Recheck/Abnormal Lab/Rx Stated complaint: High BP Time Seen by Provider: 11/21/20 12:50 Source: patient, family, RN notes reviewed, old records reviewed Mode of arrival: ambulatory Limitations: no limitations - History of Present Illness Initial comments: 50-year-old female presented from the oncologist office with elevated blood pressure. Patient has history of hypertension. She is currently on amlodipine which she believes she did not take this morning. Patient was noted to be hypertensive at the oncologist office during a follow-up appointment for ovarian cancer. She is currently on chemotherapy. She had presented with a rash to the bilateral ankles. She does report some pain associated with this and swelling. Swelling worse on the left. No significant cough, there is a mild cough. No fe cristal. She also reports a bitemporal mild headache. - Related Data Home Medications Medication Instructions Recorded Confirmed ondansetron HCL [Zofran] 8 mg PO Q8H PRN 08/20/18 10/11/20 Acetaminophen [Tylenol] 325 mg PO Q4-6H PRN 09/11/20 10/11/20 diphenhydrAMINE [Benadryl] 25 mg PO HS PRN 09/11/20 10/11/20 Previous Rx's Medication Instructions Recorded hydroCHLOROthiazide 25 mg PO DAILY 30 Days #30 tablet 11/21/20 Allergies Allergy/AdvReac Type Severity Reaction Status Date / Time lisinopril Allergy Rash/Hives Verified 11/21/20 12:49 metronidazole [From Flagyl] Allergy Rash/Hives Verified 11/21/20 12:49 gluten AdvReac Nausea & Verified 11/21/20 12:49 Vomiting Milk Containing Products AdvReac Nausea & Verified 11/21/20 12:49 [Dairy] Vomiting Review of Systems ROS Statement: Those systems with pertinent positive or pertinent negative responses have been documented in the HPI. ROS Other: All systems not noted in ROS Statement are negative. 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 2015-chemo & surgery, lymes disease, left kidney infarction, current chemo, recent hoarseness & dysphagia History of Any Multi-Drug Resistant Organisms: None Reported Past Surgical History: Cholecystectomy, Hysterectomy, Orthopedic Surgery Additional Past Surgical History / Comment(s): oophrectomy & salpingectomy & debulking, right knee arthroscopy, mediport insertion Past Anesthesia/Blood Transfusion Reactions: No Reported Reaction Past Psychological History: No Psychological Hx Reported Smoking Status: Never smoker Past Alcohol Use History: None Reported Past Drug Use History: None Reported General Exam Limitations: no limitations General appearance: alert, in no apparent distress Head exam: Present: atraumatic, normocephalic Eye exam: Present: normal appearance, PERRL Neck exam: Present: normal inspection. Absent: tenderness, meningismus Respiratory exam: Present: normal lung sounds bilaterally. Absent: respiratory distress Cardiovascular Exam: Present: regular rate, normal rhythm GI/Abdominal exam: Present: soft. Absent: distended, tenderness Extremities exam: Present: normal inspection, normal capillary refill. Absent: pedal edema, calf tenderness Neurological exam: Present: alert, oriented X3, CN II-XII intact. Absent: motor sensory deficit Psychiatric exam: Present: normal affect, normal mood Skin exam: Present: warm, dry, intact, petechiae, other (Petechial rash on the inner bilateral ankles.) Course Vital Signs 11/21/20 11/21/20 12:45 14:30 Temperature 97.6 F Pulse Rate 66 75 Respiratory 18 18 Rate Blood Pressure 179/98 176/86 O2 Sat by Pulse 99 99 Oximetry EKG Findings - EKG Comments: EKG Findings:: EKG: Normal sinus rhythm, rate of 68, DC interval 164, QRS duration 88, QTC [address] segment elevation. Medical Decision Making - Medical Decision Making 50-year-old female presented with multiple issues but main issue being elevated blood pressure at the oncologist office. I did discuss case with Kelsie the physician assistant professor of criminal justice for oncology who states she had seen this patient and is working up her lower extremity rash and ruling out vasculitis. She is asking that we addressed the patient's hypertension and she will arrange for close outpatient follow-up with Dr. White in approximately one week who is the patient's primary care physician. Patient has a normal CBC, normal platelets, normal PT and PTT and INR. Ultrasound was performed of the left leg as there is some increased unilateral swelling, this is negative for DVT. I discussed case with Dr. White, we'll agree to start the patient on 25 mg HCTZ. Patient will follow-up within the next week or so. - Lab Data Result diagrams: 11/21/20 13:27 11/21/20 13:27 Lab Results 11/21/20 11/21/20 11/21/20 Range/Units 13:27 13:27 13:27 WBC 3.5 L (3.8-10.6) k/uL RBC 3.74 L (3.80-5.40) m/uL Hgb 11.9 (11.4-16.0) gm/dL Hct 34.1 (34.0-46.0) % MCV 91.0 (80.0-100.0) fL MCH 31.9 (25.0-35.0) pg MCHC 35.1 (31.0-37.0) g/dL RDW 14.6 (11.5-15.5) % Plt Count 177 (150-450) k/uL MPV 8.4 Neutrophils % 60 % Lymphocytes % 24 % Monocytes % 7 % Eosinophils % 7 % Basophils % 1 % Neutrophils # 2.1 (1.3-7.7) k/uL Lymphocytes # 0.8 L (1.0-4.8) k/uL Monocytes # 0.3 (0-1.0) k/uL Eosinophils # 0.2 (0-0.7) k/uL Basophils # 0.0 (0-0.2) k/uL PT 10.2 (9.0-12.0) sec INR 0.9 (<1.2) APTT 60.9 H (22.0-30.0) sec Sodium 138 (137-145) mmol/L Potassium 4.1 (3.5-5.1) mmol/L Chloride 104 (98-107) mmol/L Carbon Dioxide 28 (22-30) mmol/L Anion Gap 6 mmol/L BUN 20 H (7-17) mg/dL Creatinine 0.90 (0.52-1.04) mg/dL Est GFR (CKD-EPI)AfAm 86 (>60 ml/min/1.73 sqM) Est GFR (CKD-EPI)NonAf 75 (>60 ml/min/1.73 sqM) Glucose 88 (74-99) mg/dL Calcium 9.7 (8.4-10.2) mg/dL Total Bilirubin 0.6 (0.2-1.3) mg/dL AST 38 H (14-36) U/L ALT 9 (4-34) U/L Alkaline Phosphatase 66 (38-126) U/L Total Protein 7.1 (6.3-8.2) g/dL Albumin 4.3 (3.5-5.0) g/dL 11/21/20 Range/Units 14:30 WBC (3.8-10.6) k/uL RBC (3.80-5.40) m/uL Hgb (11.4-16.0) gm/dL Hct (34.0-46.0) % MCV (80.0-100.0) fL MCH (25.0-35.0) pg MCHC (31.0-37.0) g/dL RDW (11.5-15.5) % Plt Count (150-450) k/uL MPV Neutrophils % % Lymphocytes % % Monocytes % % Eosinophils % % Basophils % % Neutrophils # (1.3-7.7) k/uL Lymphocytes # (1.0-4.8) k/uL Monocytes # (0-1.0) k/uL Eosinophils # (0-0.7) k/uL Basophils # (0-0.2) k/uL PT 9.9 (9.0-12.0) sec INR 0.9 (<1.2) APTT 23.8 (22.0-30.0) sec Sodium (137-145) mmol/L Potassium (3.5-5.1) mmol/L Chloride (98-107) mmol/L Carbon Dioxide (22-30) mmol/L Anion Gap mmol/L BUN (7-17) mg/dL Creatinine (0.52-1.04) mg/dL Est GFR (CKD-EPI)AfAm (>60 ml/min/1.73 sqM) Est GFR (CKD-EPI)NonAf (>60 ml/min/1.73 sqM) Glucose (74-99) mg/dL Calcium (8.4-10.2) mg/dL Total Bilirubin (0.2-1.3) mg/dL AST (14-36) U/L ALT (4-34) U/L Alkaline Phosphatase (38-126) U/L Total Protein (6.3-8.2) g/dL Albumin (3.5-5.0) g/dL Disposition Clinical Impression: Hypertension Disposition: HOME SELF-CARE Condition: Good Prescriptions: hydroCHLOROthiazide 25 mg PO DAILY 30 Days #30 tablet Is patient prescribed a controlled substance at d/c from ED?: No Referrals: Delmer Zarate MD [Primary Care Provider] - 1-2 days Geovany White DO [Doctor of Osteopathic Medicine] - 1-2 days Time of Disposition: 15:12
[2020-11-21 13:57] LABS: Basophils % (A) 1 %; Eosinophils # (A) 0.2 k/uL (0-0.7); Eosinophils % (A) 7 %; HCT 34.1 % (34.0-46.0); HGB 11.9 gm/dL (11.4-16.0); Lymphocytes # (A) 0.8 k/uL (1.0-4.8); Lymphocytes % (A) 24 %; MCH 31.9 pg (25.0-35.0); MCHC 35.1 g/dL (31.0-37.0); Mean Platelet Volume 8.4; Monocytes # (A) 0.3 k/uL (0-1.0); Monocytes % (A) 7 %; Neutrophils # (A) 2.1 k/uL (1.3-7.7); Neutrophils % (A) 60 %; Platelet Count 177 k/uL (150-450); RBC 3.74 m/uL (3.80-5.40); RDW 14.6 % (11.5-15.5); WBC 3.5 k/uL (3.8-10.6)
[2020-11-21 14:03] LABS: INR 0.9 (<1.2); Prothrombin Time 10.2 sec (9.0-12.0)
[2020-11-21 14:07] LABS: Albumin 4.3 g/dL (3.5-5.0); Calcium 9.7 mg/dL (8.4-10.2); Potassium 4.1 mmol/L (3.5-5.1); Total Bilirubin 0.6 mg/dL (0.2-1.3); Total Protein 7.1 g/dL (6.3-8.2)
[2020-11-21 14:15] LABS: Partial Thromboplastin Time 60.9 sec (22.0-30.0)
[2020-11-21 14:54] LABS: INR 0.9 (<1.2); Partial Thromboplastin Time 23.8 sec (22.0-30.0); Prothrombin Time 9.9 sec (9.0-12.0)
--- NOTE | 2020-11-21 15:14 | US ---
EXAMINATION TYPE: US venous doppler duplex LE LT DATE OF EXAM: 11/21/2020 2:21 PM COMPARISON: 11/15/2020 CLINICAL HISTORY: swelling. Chemo patient. Lower leg redness. SIDE PERFORMED: Left TECHNIQUE: The lower extremity deep venous system is examined utilizing real time linear array sonog peter with graded compression, doppler sonography and color-flow sonography. VESSELS IMAGED: Common Femoral Vein Deep Femoral Vein Greater Saphenous Vein * Femoral Vein Popliteal Vein Small Saphenous Vein * Proximal Calf Veins (* superficial vessels) Left Leg: Negative for DVT. Abnormal appearing Lymph node visualized in left groin= 2.5 x 1.4 x 1.2 cm. IMPRESSION: 1. No evidence of deep venous thrombosis in the left lower extremity. 2. Prominent abnormal appearing left groin lymph node measuring 2.5 cm. This would be amenable to ult rasound-guided biopsy if clinically indicated.
[2020-11-21 15:56] VITALS: BP 161/86; PULSE 71
== END 2020-11-21 15:56 | disposition home or self-care (01) ==
LOC: EC 12:40
DX: I10 Essential (primary) hypertension (principal); M25.572 Pain in left ankle and joints of left foot; M25.571 Pain in right ankle and joints of right foot; R23.3 Spontaneous ecchymoses; Z79.899 Other long term (current) drug therapy; Z91.011 Allergy to milk products; Z88.1 Allergy status to other antibiotic agents; Z91.018 Allergy to other foods; Z88.8 Allergy status to other drugs, medicaments and biological substances
CPT/HCPCS: 99284 ×2; 36415; 93005; 80053; 85025; 85610; 85730; 93971; J2060; J1642

== ENCOUNTER → 2021-06-06 | Outpatient (CLI) | payer BC ==
--- NOTE | 2021-06-07 12:35 | MM ---
Reason for exam: screening (asymptomatic). Last mammogram was performed 3 years and 1 month ago. History: Patient is postmenopausal and has history of ovarian cancer at age 45. Took hormonal contraceptives for 1 year. Physical Findings: A clinical breast exam by your physician is recommended on an annual basis and results should be correlated with mammographic findings. MG 3D Screening Mammo W/Cad Bilateral CC and MLO view(s) were taken. Prior study comparison: April 30, 2018, bilateral MG 3d diag mammo w/cad [facility]MY. February 21, 2010, right breast mammogram dig work up. The breast tissue is heterogeneously dense. This may lower the sensitivity of mammography. There is no discrete abnormality. No significant changes when compared with prior studies. ASSESSMENT: Negative, BI-RAD 1 RECOMMENDATION: Routine screening mammogram of both breasts in 1 year.
== END | disposition home or self-care (01) ==
LOC: RADMAMWWP 11:13
PROVIDERS: ATTEND Internal Medicine Hematology & Oncology
DX: Z12.31 Encounter for screening mammogram for malignant neoplasm of breast (principal)
CPT/HCPCS: 77063; 77067